=== PATIENT | female | born 1990 | race African-American/Black ===

== ENCOUNTER → 2019-05-09 | Emergency (ER) | payer SELFPAY | END | disposition home or self-care (01) | LOC: JER 08:17 ==

== ENCOUNTER 2019-05-17 12:23 | Emergency (ER) | payer OTHER ==
[2019-05-17 12:27] VITALS: BMI 24.9
[2019-05-17] MEDS ORDERED: DEXAMETHASONE SOD PHOSPHATE 10 MG/1 ML VIAL IM ONE (12:47)
[2019-05-17] MEDS ORDERED: DEXAMETHASONE SOD PHOSPHATE 10 MG/1 ML VIAL ONE (12:53)
--- NOTE | 2019-05-17 13:03 | PDOC ---
History of Present Illness - General Chief Complaint: Allergic Reaction Stated Complaint: ALLERGIC REACTION Time Seen by Provider: 05/17/19 12:41 History Source: Patient Exam Limitations: Clinical Condition - History of Present Illness Initial Comments: 05/17/19 12:59 Patient with no significant past medical history present with complaint of whole -body itching and sensation of throat closing up after taking Aleve this morning. Patient report has been taking amoxicillin and Mucinex for the past 3 days for nasal polyps given by ENT and took a dose of Aleve this morning for pain which she started itching 20 minutes after. Denies rash, tongue or lip swelling. Patient did not take anything for symptoms Timing/Duration: 1 hour Past History - Past Medical History Allergies/Adverse Reactions: Allergies Allergy/AdvReac Type Severity Reaction Status Date / Time ibuprofen [From Advil] Allergy Verified 05/17/19 12:45 Home Medications: Ambulatory Orders Amoxicillin - [Amoxicillin 500mg Capsule -] 500 mg PO BID 05/17/19 Famotidine [Pepcid -] 20 mg PO BID 4 Days #8 tablet 05/17/19 Ketotifen Fumarate [Zaditor] 2 drop OU Q6H PRN #1 bottle 05/17/19 predniSONE [Deltasone -] 20 mg PO BID 4 Days #8 tablet 05/17/19 COPD: No - Suicide/Smoking/Psychosocial Hx Smoking History: Never smoked Hx Alcohol Use: No Drug/Substance Use Hx: No Review of Systems - Review of Systems Able to Perform ROS?: Yes Is the patient limited German proficient: No Constitutional: No: Chills, Fever, Malaise HEENTM: No: Symptoms Reported, See HPI, Eye Pain, Blurred Vision, Tearing, Recent change in vision, Double Vision, Cataracts, Ear Pain, Ocular Prothesis, Ear Discharge, Nose Pain, Nose Congestion, Tinnitus, Nose Bleeding, Hearing Loss , Throat Pain, Throat Swelling, Mouth Pain, Dental Problems, Difficulty Swallowing, Mouth Swelling, Other Respiratory: No: Symptoms reported, See HPI, Cough, Orthopnea, Shortness of Breath, SOB with Exertion, SOB at Rest, Stridor, Wheezing, Productive cough, Hemoptysis, Other Cardiac (ROS): No: Symptoms Reported, See HPI, Chest Pain, Edema, Irregular Heart Rate, Lightheadedness, Palpitations, Syncope, Chest Tightness, Other ABD/GI: No: Nausea, Vomiting Integumentary: Yes: Symptoms Reported, See HPI, Pruritus (whole body). No: Erythema, Rash Neurological: No: Symptoms reported, Weakness, Dizziness All Other Systems: Reviewed and Negative *Physical Exam - Vital Signs Last Vital Signs Temp Pulse Resp BP Pulse Ox 97.5 F L 125 H 20 126/78 98 05/17/19 12:25 05/17/19 12:25 05/17/19 12:25 05/17/19 12:25 05/17/19 12:25 - Physical Exam Comments: 05/17/19 13:03 GENERAL: Well developed, well nourished. Awake and alert. No acute distress. HEENT: Normocephalic, atraumatic. PERRLA, EOMI. No conjunctival pallor. Sclera are non-icteric. Moist mucous membranes. Oropharynx is clear. NECK: Supple. Full ROM. CARDIOVASCULAR: Regular rate and rhythm. No murmurs, rubs, or gallops. Distal pulses are 2+ and symmetric. PULMONARY: No evidence of respiratory distress. Lungs clear to auscultation bilaterally. No wheezing, rales or rhonchi. MUSCULOSKELETAL Normal range of motion at all joints. SKIN: Warm and dry. Normal capillary refill. No rashes. No jaundice. NEUROLOGICAL: Alert, awake, appropriate. Gait is normal without ataxia. PSYCHIATRIC: Cooperative. Good eye contact. Appropriate mood General Appearance: Yes: Nourished, Appropriately Dressed. No: Apparent Distress ED Treatment Course - Medications Given in the ED: ED Medications Discontinued Medications Generic Name Dose Route Start Last Admin Trade Name Freq PRN Reason Stop Dose Admin Dexamethasone Sodium Phosphate 10 mg 05/17/19 12:47 05/17/19 12:57 Decadron Injection - IM 05/17/19 12:48 10 mg ONCE ONE Administration Diphenhydramine HCl 50 mg 05/17/19 12:47 05/17/19 12:57 Benadryl Injection - IM 05/17/19 12:48 50 mg ONCE ONE Administration Medical Decision Making - Medical Decision Making 05/17/19 13:00 Patient with no significant past medical history present with complaint of whole -body itching and sensation of throat closing up after taking Aleve this morning. Patient report has been taking amoxicillin and Mucinex for the past 3 days for nasal polyps given by ENT and took a dose of Aleve this morning for pain which she started itching 20 minutes after. Denies rash, tongue or lip swelling. Patient did not take anything for symptoms Exam significant for patient in no distress and patent oropharynx. No rash to body. No lip or tongue swelling on exam. Benadryl 50 mg IM and Decadron 10 mg IM given for ALLERGIC reaction. Patient will be observed for 2 hours for worsening symptoms 05/17/19 13:33 Patient reported no more itching or throat closing sensation after Benadryl and Decadron. Will observe patient for another hour and discharge if no new symptoms 05/17/19 14:52 Patient still is symptomatic now is stable for discharge. Patient with mildly injected bilateral conjunctivae and will be discharge on Zaditor to help with eye redness which is caused by histamine effect *DC/Admit/Observation/Transfer Diagnosis at time of Disposition: Allergic reaction caused by a drug Qualifiers: Encounter type: initial encounter Qualified Code(s): T78.40XA - Allergy, unspecified, initial encounter - Discharge Dispostion Disposition: HOME Condition at time of disposition: Stable Decision to Admit order: No - Prescriptions Prescriptions: Famotidine [Pepcid -] 20 mg PO BID 4 Days #8 tablet Ketotifen Fumarate [Zaditor] 2 drop OU Q6H PRN #1 bottle PRN Reason: eyes redness predniSONE [Deltasone -] 20 mg PO BID 4 Days #8 tablet - Referrals - Patient Instructions Printed Discharge Instructions: DI for Adverse Drug Reaction -- Allergic Additional Instructions: Take prescribed medication for allergic reaction. Come back to ER right away if shortness of breathe, choking sensation, lip or tongue swelling or worsening ALLERGIC symptoms. - Post Discharge Activity
[2019-05-17 14:34] VITALS: BP 117/72; PULSE 99; TEMP 98.2
== END 2019-05-17 14:52 | disposition home or self-care (01) ==
LOC: JERFT 12:23
PROC: 3E0233Z Introduction of Anti-inflammatory into Muscle, Percutaneous Approach (ICD-10-PCS; principal; 2019-05-17)
PROC: 3E023GC Introduction of Other Therapeutic Substance into Muscle, Percutaneous Approach (ICD-10-PCS; 2019-05-17)
DX: L29.8 Other pruritus (principal); T78.49XA Other allergy, initial encounter; T39.315A Adverse effect of propionic acid derivatives, initial encounter; Y92.038 Other place in apartment as the place of occurrence of the external cause; X58.XXXA Exposure to other specified factors, initial encounter
CPT/HCPCS: 96372; 99282-25; J1100

== ENCOUNTER 2020-04-21 22:16 | Emergency (ER) | payer OTHER ==
[2020-04-21 22:25] VITALS: BP 111/71; PULSE 75; TEMP 98; BMI 24.3
--- NOTE | 2020-04-21 22:29 | PDOC ---
History of Present Illness - General Stated Complaint: throatPROBLEM Time Seen by Provider: 04/21/20 22:18 History Source: Patient Exam Limitations: No Limitations - History of Present Illness Initial Comments: 04/21/20 22:42 HISTORY OF PRESENT ILLNESS: 29-year-old woman with past medical history of chronic sinusitis currently scheduled for surgery to remove a nasal polyp presents emergency department for evaluation of sore throat. Patient reports having a hard time breathing due to the chronic sinusitis and is now breathing through her mouth. Patient is concerned that the sore throat gets worse she will not be able to breathe and is requesting treatment at this time. No recent travel or sick contacts. PAST MEDICAL HISTORY: See HPI SURGICAL HISTORY: Denies ALLERGIES: No known drug allergies REVIEW OF SYSTEMS General/Constitutional: Denies fever or chills. Denies weakness, weight change. HEENT: See HPI Cardiovascular: Denies chest pain or shortness of breath. Respiratory: Denies cough, wheezing, or hemoptysis. Gastrointestinal: Denies nausea, vomiting, diarrhea or constipation. Denies rectal bleeding. Genitourinary: Denies dysuria, frequency, or change in urination. Musculoskeletal: Denies joint or muscle swelling or pain. Denies neck or back pain. Skin and breasts: Denies rash or easy bruising. Neurologic: Denies headache, vertigo, loss of consciousness, or loss of sensation. Psychiatric: Denies depression or anxiety. Endocrine: Denies increased thirst. Denies abnormal weight change. Hematologic/Lymphatic: Denies anemia, easy bleeding, or history of blood clots. Allergic/Immunologic: Denies hives or skin allergy. Denies latex allergy. PHYSICAL EXAM General Appearance: Well-appearing, appropriately dressed. No apparent distress, no intoxication. HEENT: EOMI, PERRLA, normal voice, TMs normal. No conjunctival pallor. No photophobia, scleral icterus. 2+ erythematous tonsils present with scant exudate present bilaterally. Cobblestoning present in the posterior aspect of the oropharynx. Uvula is midline. Neck: Supple. Trachea midline. No tenderness, rigidity, carotid bruit, stridor, lymphadenopathy, or thyromegaly. Respiratory/Chest: Lungs CTAB. No shortness of breath, chest tenderness, respiratory distress, accessory muscle use. No crackles, rales, rhonchi, stridor, wheezing, dullness Past History - Medical History Allergies/Adverse Reactions: Allergies Allergy/AdvReac Type Severity Reaction Status Date / Time ibuprofen [From Advil] Allergy Verified 04/21/20 22:22 Home Medications: Ambulatory Orders Amoxicillin - [Amoxicillin 500mg Capsule -] 500 mg PO BID 05/17/19 Famotidine [Pepcid -] 20 mg PO BID 4 Days #8 tablet 05/17/19 Ketotifen Fumarate [Zaditor] 2 drop OU Q6H PRN #1 bottle 05/17/19 predniSONE [Deltasone -] 20 mg PO BID 4 Days #8 tablet 05/17/19 Amox-Tr/K Cl [Augmentin - 875Mg Tablet] 1 tab PO BID #20 tablet 04/21/20 COPD: No - Psycho-Social/Smoking History Smoking History: Never smoked Medical Decision Making - Medical Decision Making 04/21/20 22:46 A/P: 29-year-old woman with pharyngitis As patient has a chronic sinusitis and physical exam is consistent with a bacterial infection I will treat the patient prophylactically with Augmentin 875 mg twice daily for the next 10 days. Rapid strep testing Discharge home Portions of this note have been documented using voice recognition software. As a result, errors may occur in the rn maternity process. Effort has been made to correct all grammatical and rn maternity error, but some may have been missed which may produce sporadic inaccurate rn maternity or nonsensical phrases. Discharge - Discharge Information Problems reviewed: Yes Clinical Impression/Diagnosis: Pharyngitis Qualifiers: Pharyngitis/tonsillitis etiology: other specified organisms Qualified Code(s): J02.8 - Acute pharyngitis due to other specified organisms Condition: Stable Disposition: HOME - Admission No - Additional Discharge Information Prescriptions: Amox-Tr/K Cl [Augmentin - 875Mg Tablet] 1 tab PO BID #20 tablet - Follow up/Referral - Patient Discharge Instructions Additional Instructions: Take amoxicillin as prescribed. Salt water garggles. Throw away your toothbrush in 3 days and start using a new toothbrush. No sharing of drinks, utensils or toothbrushes. Take Motrin as directed by deputy administrator's instructions. Return to ED for worsening fevers, worsening sore throat, chest pain, shortness of breath or any other concerns. - Post Discharge Activity
== END 2020-04-21 22:36 | disposition home or self-care (01) ==
LOC: JER 22:16
DX: J02.8 Acute pharyngitis due to other specified organisms (principal)
CPT/HCPCS: 87070; 87880; 99283-25

== ENCOUNTER 2020-06-07 17:49 | Emergency (ER) | payer OTHER ==
--- NOTE | 2020-06-07 18:11 | PDOC ---
Rapid Medical Evaluation Time Seen by Provider: 06/07/20 18:08 Medical Evaluation: Allergies Allergy/AdvReac Type Severity Reaction Status Date / Time ibuprofen [From Advil] Allergy Verified 06/07/20 18:06 NSAIDS (Non-Steroidal Allergy Verified 06/07/20 18:06 Anti-Inflamma 06/07/20 18:09 Pt presents for evaluation of throat irritation, was seen at an and told to come to the ER as she was also having some chest pain. Exam: RRR, throat non-erythematous, no exudate/ edema Orders: EKG, strep Pt to proceed to the ER for further evaluation Discharge Disposition - Diagnosis Throat pain - Referrals - Patient Instructions - Post Discharge Activity
[2020-06-07 18:13] VITALS: BP 116/68; PULSE 94; TEMP 98.7; BMI 24.6
--- NOTE | 2020-06-07 20:06 | PDOC ---
History of Present Illness - General Chief Complaint: Pain Stated Complaint: THROAT IRRITATION Time Seen by Provider: 06/07/20 18:08 - History of Present Illness Initial Comments: 06/07/20 20:03 29-year-old female with a past medical history of asthma presents for evaluation of cough. Past History - Medical History Allergies/Adverse Reactions: Allergies Allergy/AdvReac Type Severity Reaction Status Date / Time ibuprofen [From Advil] Allergy Verified 06/07/20 18:06 NSAIDS (Non-Steroidal Allergy Verified 06/07/20 18:06 Anti-Inflamma Home Medications: Ambulatory Orders Amoxicillin - [Amoxicillin 500mg Capsule -] 500 mg PO BID 05/17/19 Famotidine [Pepcid -] 20 mg PO BID 4 Days #8 tablet 05/17/19 Ketotifen Fumarate [Zaditor] 2 drop OU Q6H PRN #1 bottle 05/17/19 predniSONE [Deltasone -] 20 mg PO BID 4 Days #8 tablet 05/17/19 Amox-Tr/K Cl [Augmentin - 875Mg Tablet] 1 tab PO BID #20 tablet 04/21/20 COPD: No Other medical history: AERD - Reproductive History Is Patient Now?: No - Immunization History Immunization Up to Date: Yes - Psycho-Social/Smoking History Smoking History: Never smoked - Substance Abuse Hx (Audit-C & DAST Scrn) How often the patient has a drink containing alcohol: Never Score: In Men: 4 or > Positive; In Women: 3 or > Positive: 0 Screen Result (Pos requires Nsg. Audit-10AR): Negative In the last yr the pt used illegal drug/Rx for NonMed reason: No Score: Yes response is considered Positive: 0 Screen Result (Positive result requires Nsg. DAST-10): Negative Review of Systems - Review of Systems Constitutional: No: Fever Respiratory: Yes: Cough Cardiac (ROS): Yes: Chest Pain *Physical Exam - Vital Signs Last Vital Signs Temp Pulse Resp BP Pulse Ox 98.7 F 94 H 20 116/68 100 06/07/20 18:07 06/07/20 18:07 06/07/20 18:07 06/07/20 18:07 06/07/20 18:07 - Physical Exam 06/07/20 20:03 GENERAL: The patient is awake, alert, and fully oriented, in no acute distress. HEAD: Normal with no signs of trauma. EYES: sclera anicteric, conjunctiva clear. ENT: Ears normal tympanic membranes normal oropharynx clear uvula midline NECK: Normal range of motion LUNGS: Breath sounds equal, clear to auscultation bilaterally. No wheezes, and no crackles. HEART: S1 and S2 without murmur, rub or gallop. ABDOMEN: Soft, nontender, normoactive bowel sounds. No guarding, no rebound. No masses. EXTREMITIES: Normal range of motion, no edema. No clubbing or cyanosis. No cords, erythema, or tenderness. NEUROLOGICAL: Cranial nerves II through XII grossly intact. PSYCH: Normal mood, normal affect. SKIN: Warm, Dry, normal turgor, no rashes or lesions noted. ED Treatment Course - RADIOLOGY Radiology Studies Ordered: Category Date Time Status CHEST PA & LAT [RAD] Stat Radiology 06/07/20 18:42 Taken Medical Decision Making - Medical Decision Making 06/07/20 20:03 Clear breath sounds first-degree AV block on EKG negative chest x-ray strep negative. COVID swab pending. Isolation for now supportive care I have reviewed the pathophysiology with the patient. They are in agreement with the treatment plan all questions were answered to their satisfaction. Understanding for follow-up without fail was also conveyed to the patient. Again they are in agreement. Discharge - Discharge Information Problems reviewed: Yes Clinical Impression/Diagnosis: Throat pain Condition: Stable Disposition: HOME - Admission No - Follow up/Referral Referrals: Christiano Jolley MD [Staff Physician] - - Patient Discharge Instructions Additional Instructions: Tylenol for any discomfort. Continue with your asthma medication as directed and return to the emergency room should symptoms worsen. Because you have exhibited symptoms of COVID 19 please isolate yourself and wear a mask until your test results are back. If strep test today was negative. - Post Discharge Activity
--- NOTE | 2020-06-08 10:17 | EKG ---
Test Reason : Blood Pressure : / mmHG Vent. Rate : 090 BPM Atrial Rate : 090 BPM P-R Int : 222 ms QRS Dur : 080 ms QT Int : 344 ms P-R-T Axes : 069 055 054 degrees QTc Int : 420 ms SINUS RHYTHM WITH 1ST DEGREE A-V BLOCK OTHERWISE NORMAL ECG WHEN COMPARED WITH ECG OF 09-MAY-2019 08:25, NO SIGNIFICANT CHANGE WAS FOUND Confirmed by MD Lalo, Kalen ([id number]) on 06/08/2020 10:17:11 AM Referred By: Confirmed By:Kalen May MD
== END 2020-06-07 20:11 | disposition home or self-care (01) ==
LOC: JER 17:49 → JERFT 17:49
DX: J02.9 Acute pharyngitis, unspecified (principal)
CPT/HCPCS: 71046-TC-FY; 87070; 87880; 93005; 93010; 99285-25; U0003

== ENCOUNTER 2022-11-06 22:57 | Emergency (ER) | payer OTHER ==
[2022-11-06 23:04] VITALS: BMI 25.9
[2022-11-07 00:21] LABS: BASO % 0.6 % (0-2.0); EOS % 4.7 % (0-4.5); HEMATOCRIT 37.3 % (32.4-45.2); HEMOGLOBIN 12.5 GM/dL (10.7-15.3); LYMPH % 31.4 % (8-40); MCH 31.1 pg (25.7-33.7); MCHC 33.5 g/dl (32.0-36.0); MONO % 4.9 % (3.8-10.2); NEUT % 58.4 % (42.8-82.8); PLATELET COUNT 210 10^3/uL (134-434); RBC 4.01 M/mm3 (3.60-5.2); RDW 12.9 % (11.6-15.6); WHITE BLOOD COUNT 9.2 K/mm3 (4.0-10.0)
[2022-11-07 00:43] LABS: INR 1.09 (0.83-1.09); PROTHROMBIN TIME (PATIENT) 12.5 SEC (9.7-13.0)
[2022-11-07 00:45] LABS: ACTIVATED PTT 27.7 SECONDS (25.2-36.5)
[2022-11-07 01:34] LABS: PH,URINE 5.5 (5.0-8.0); URINE APPEARANCE CLOUDY; URINE BILIRUBIN NEGATIVE (NEGATIVE); URINE COLOR YELLOW; URINE GLUCOSE (UA) NEGATIVE (NEGATIVE); URINE KETONE NEGATIVE (NEGATIVE); URINE LEUK ESTERASE NEGATIVE (NEGATIVE); URINE NITRITE NEGATIVE (NEGATIVE); URINE PROTEIN NEGATIVE (NEGATIVE); URINE UROBILINOGEN 0.2 mg/dL (0.2-1.0)
[2022-11-07 02:03] VITALS: BP 106/56; PULSE 96; RESP 16; TEMP 98.2
== END 2022-11-07 02:27 | disposition home or self-care (01) ==
LOC: JER 22:57
DX: O26.891 Other specified pregnancy related conditions, first trimester (principal); N83.201 Unspecified ovarian cyst, right side; Z3A.01 Less than 8 weeks gestation of pregnancy
CPT/HCPCS: 36415; 76817-TC; 81003; 84702; 85025; 85610; 85730; 86850; 86900; 86901; 99284-25